=== PATIENT | female | born 1950 | race Caucasian/White ===

== ENCOUNTER 2020-04-26 19:25 | Inpatient (IN) | payer MEDICARE, OTHER ==
[~2020-04-26] VITALS: Ht 165.1 cm; Wt 72.3 kg
[2020-04-26] MEDS ORDERED: NITROGLYCERIN 50MG/250ML 0 ML IV ONE (19:35)
[2020-04-26] MEDS ORDERED: HEPARIN DRIP/D5W 100UNITS/ML 0 ML IV ONE (19:35)
[2020-04-26] MEDS ORDERED: HEPARIN SODIUM (PORCINE) 5000 UNITS/ML 1ML VIAL ONE (19:35)
[2020-04-26] MEDS ORDERED: MORPHINE SULFATE 4 MG/ML SYR/VIAL IV ONE (19:45)
[2020-04-26] MEDS ORDERED: ONDANSETRON HCL 4 MG/2 ML VIAL IV ONE ×2 (19:45→20:30)
[2020-04-26] MEDS ORDERED: ENOXAPARIN SOD 100 MG/1 ML SYRINGE SC ONE (19:45)
[2020-04-26] MEDS ORDERED: ASPirin 325 MG TAB PO ONE (19:45)
[2020-04-26] MEDS ORDERED: ENOXAPARIN SOD 30 MG/0.3 ML SYRINGE IV ONE (19:45)
[2020-04-26] MEDS ORDERED: DOPamine 1600MCG/ML D5W 250 ML IV ONE (20:00)
[2020-04-26] MEDS ORDERED: IOHEXOL 350 MG/ML 100ML IJ ONE (20:01)
[2020-04-26] MEDS ORDERED: IODIXANOL 320MG/ML 100ML BTL IV ONE ×2 (20:01→20:10)
[2020-04-26] MEDS ORDERED: LIDOCAINE 2%HCL (LOCAL ANESTH.) INJ 20ML MDV ONE (20:01)
[2020-04-26 20:03] LABS: Basophils # (auto) 0.1 10 ^3/uL (0-0.2); Basophils % (auto) 1.2 % (0.0-2.0); Eosinophils # (auto) 0.2 10 ^3/uL (0-0.8); Eosinophils % (auto) 1.5 % (0.0-7.0); Hemoglobin 12.7 g/dL (12.2-16.2); Lymphocytes # (auto) 3.4 10 ^3/uL (0.4-5.4); Mean Corpuscular Hemoglobin 28.7 pg (28.0-32.0); Mean Corpuscular Hgb Conc. 32.5 g/dL (32.0-36.0); Mean Corpuscular Volume 88.3 fL (80.0-100.0); Monocytes # (auto) 0.6 10 ^3/uL (0-1.3); Monocytes % (auto) 6.1 % (0.0-12.0); Neutrophils # (auto) 6.2 10 ^3/uL (1.6-8.6); Neutrophils % (auto) 59.2 % (37.0-80.0); Nucleated Red Blood Cells % 0.1 %; Platelet Count (auto) 244 10^3/uL (140-450); Red Blood Cells 4.41 10^6/uL (4.0-5.20); Red Cell Distribution Width 13.2 % (11.8-14.3); White Blood Cell 10.5 10^3/uL (4.4-10.8)
[2020-04-26] MEDS ORDERED: ANGIOMAX 250 MG VIAL IV ONE (20:09)
[2020-04-26] MEDS ORDERED: niCARdipine 25 MG/10 ML VIAL IV ONE (20:09)
[2020-04-26] MEDS ORDERED: fentaNYL CITRATE 100 MCG/2 ML VL ONE (20:10)
[2020-04-26] MEDS ORDERED: MIDAZOLAM HCL 1MG/1ML-2 ML VIAL ONE (20:10)
[2020-04-26] MEDS ORDERED: SODIUM CHL 0.9% 50 ML ONE (20:10)
[2020-04-26 20:19] LABS: INR 1.03 (0.9-1.15); Partial Thromboplastin Time 22.2 sec (23.0-31.2)
[2020-04-26] MEDS ORDERED: ONDANSETRON HCL 4 MG/2 ML VIAL ONE (20:19)
[2020-04-26 20:28] LABS: Albumin 2.8 g/dL (3.4-5.0); Calcium 7.7 mg/dL (8.5-10.1); Magnesium 2.4 mg/dL (1.6-2.6); Potassium 3.6 mmol/L (3.5-5.1)
[2020-04-26] MEDS ORDERED: ADENOSINE 6 MG/2 ML INJ IV ONE (20:30)
[2020-04-26 20:35] LABS: BUN/Creatinine Ratio 14.6; Bilirubin, Total 0.3 mg/dL (0.2-1.0); Total Protein 5.6 g/dL (6.4-8.2)
[2020-04-26] MEDS ORDERED: EPTIFIBATIDE INJ (2MG/ML) 10ML VIAL IV ONE (20:35)
[2020-04-26] MEDS ORDERED: ATROPINE SULF 1 MG/10ml SYR ONE ×2 (20:39→20:41)
[2020-04-26] MEDS ORDERED: TICAGRELOR 90 MG TAB ONE (20:59)
[2020-04-26] MEDS ORDERED: ONDANSETRON HCL 4 MG/2 ML VIAL IV PRN (21:30)
[2020-04-26] MEDS ORDERED: DEXTROSE (50%) 50ML SYRG IV PRN (21:30)
[2020-04-26] MEDS: SOD CHL 0.45% 1,000 ML IV SCH (21:30)
[2020-04-26] MEDS ORDERED: HYDROcodone-ACET 5/325MG TAB PO PRN (21:30)
[2020-04-26] MEDS ORDERED: HYDROmorphone HCL 2 MG/ML VL IV PRN (21:30)
[2020-04-26] MEDS: METOPROLOL TARTRATE 25 MG TAB PO SCH (22:00)
[2020-04-26] MEDS: ACCU-CHEK COMFORT CURVE STRIP VI SCH (22:00)
[2020-04-26] MEDS: SODIUM CHLOR 0.9% PF (SALINE LOCK) 10ML VIAL/SYR IV SCH ×2 (22:00)
[2020-04-26] MEDS ORDERED: InsuLIN REG 1unit/0.01ml Soln (100units/ml) SC SCH (22:00)
[2020-04-26 22:30] VITALS: BP 116/64
[2020-04-26 22:45] VITALS: BP 116/64
[2020-04-26 23:00] VITALS: BP 129/64
[2020-04-27] VITALS (36 sets, daily range): BP systolic 93–193; BP diastolic 50–85
[2020-04-27 00:09] LABS: Magnesium 1.8 mg/dL (1.6-2.6)
[2020-04-27 04:26] LABS: Albumin 2.8 g/dL (3.4-5.0); Calcium 6.9 mg/dL (8.5-10.1); Potassium 4.3 mmol/L (3.5-5.1)
[2020-04-27 04:32] LABS: Basophils # (auto) 0 10 ^3/uL (0-0.2); Basophils % (auto) 0.2 % (0.0-2.0); Eosinophils # (auto) 0 10 ^3/uL (0-0.8); Eosinophils % (auto) 0.1 % (0.0-7.0); Hematocrit 40.7 % (36.0-46.0); Lymphocytes # (auto) 0.6 10 ^3/uL (0.4-5.4); Mean Corpuscular Hemoglobin 28.3 pg (28.0-32.0); Mean Corpuscular Hgb Conc. 31.9 g/dL (32.0-36.0); Mean Corpuscular Volume 88.6 fL (80.0-100.0); Monocytes # (auto) 0.6 10 ^3/uL (0-1.3); Monocytes % (auto) 3.9 % (0.0-12.0); Neutrophils # (auto) 14.4 10 ^3/uL (1.6-8.6); Neutrophils % (auto) 91.8 % (37.0-80.0); Nucleated Red Blood Cells % 0.1 %; Platelet Count (auto) 213 10^3/uL (140-450); Red Blood Cells 4.59 10^6/uL (4.0-5.20); Red Cell Distribution Width 13.2 % (11.8-14.3); White Blood Cell 15.7 10^3/uL (4.4-10.8)
[2020-04-27 04:37] LABS: BUN/Creatinine Ratio 15.6; Bilirubin, Total 0.6 mg/dL (0.2-1.0); Total Protein 5.8 g/dL (6.4-8.2)
[2020-04-27] MEDS: METOPROLOL TARTRATE 25 MG TAB PO SCH ×3 (06:00→20:25)
[2020-04-27] MEDS: SODIUM CHLOR 0.9% PF (SALINE LOCK) 10ML VIAL/SYR IV SCH ×5 (06:00→21:43)
[2020-04-27] MEDS: InsuLIN REG 1unit/0.01ml Soln (100units/ml) SC SCH ×2 (06:54→11:30)
[2020-04-27] MEDS: ACCU-CHEK COMFORT CURVE STRIP VI SCH ×2 (06:55→11:30)
[2020-04-27] MEDS ORDERED: ATORVASTATIN 20 MG TAB PO SCH ×2 (10:00→22:00)
[2020-04-27] MEDS: SOD CHL 0.45% 1,000 ML IV SCH (10:50)
[2020-04-27] MEDS: TICAGRELOR 90 MG TAB PO SCH ×2 (11:41→21:42)
[2020-04-27] MEDS: ASPirin 81 mg TAB PO SCH (11:41)
[2020-04-27] MEDS: PANTOPRAZOLE 40 MG/10 ML VIAL INJ IV SCH (11:42)
[2020-04-27] MEDS: Ensure HIGH Protein Chocolate 8oz Bottle PO SCH ×2 (12:00→19:00)
[2020-04-27] MEDS: LISINOPRIL 20 MG TAB PO SCH (20:26)
[2020-04-27] MEDS ORDERED: FUROSEMIDE 40 MG/4 ML VIAL ONE (20:45)
[2020-04-27] MEDS ORDERED: FUROSEMIDE 40 MG/4 ML VIAL IV ONE (20:45)
[2020-04-28 06:25] LABS: Basophils # (auto) 0 10 ^3/uL (0-0.2); Basophils % (auto) 0.4 % (0.0-2.0); Eosinophils # (auto) 0.1 10 ^3/uL (0-0.8); Eosinophils % (auto) 0.7 % (0.0-7.0); Hematocrit 37.2 % (36.0-46.0); Hemoglobin 12.6 g/dL (12.2-16.2); Lymphocytes # (auto) 1.7 10 ^3/uL (0.4-5.4); Lymphocytes % (auto) 15.2 % (10.0-50.0); Mean Corpuscular Hemoglobin 29.2 pg (28.0-32.0); Mean Corpuscular Hgb Conc. 33.9 g/dL (32.0-36.0); Mean Corpuscular Volume 86.1 fL (80.0-100.0); Monocytes % (auto) 8.9 % (0.0-12.0); Neutrophils # (auto) 8.5 10 ^3/uL (1.6-8.6); Neutrophils % (auto) 74.8 % (37.0-80.0); Platelet Count (auto) 207 10^3/uL (140-450); Red Blood Cells 4.32 10^6/uL (4.0-5.20); Red Cell Distribution Width 12.9 % (11.8-14.3); White Blood Cell 11.4 10^3/uL (4.4-10.8)
[2020-04-28] MEDS: METOPROLOL TARTRATE 25 MG TAB PO SCH (06:27)
[2020-04-28] MEDS: SODIUM CHLOR 0.9% PF (SALINE LOCK) 10ML VIAL/SYR IV SCH (06:27)
[2020-04-28 06:38] LABS: Calcium 8.5 mg/dL (8.5-10.1); Potassium 3.3 mmol/L (3.5-5.1)
[2020-04-28 06:47] LABS: BUN/Creatinine Ratio 16.7
[2020-04-28] MEDS: Ensure HIGH Protein Chocolate 8oz Bottle PO SCH ×2 (08:30→12:30)
[2020-04-28 09:00] VITALS: BP 139/65
[2020-04-28] MEDS ORDERED: POTASSIUM EFFERVESENT TAB 25 MEQ PO ONE (09:00)
[2020-04-28] MEDS: ASPirin 81 mg TAB PO SCH (09:53)
[2020-04-28] MEDS: PANTOPRAZOLE 40 MG/10 ML VIAL INJ IV SCH (09:54)
[2020-04-28] MEDS: LISINOPRIL 20 MG TAB PO SCH (09:55)
[2020-04-28] MEDS ORDERED: ASPirin 81 mg TAB PO SCH (10:00)
[2020-04-28] MEDS: TICAGRELOR 90 MG TAB PO SCH (11:03)
[2020-04-28 12:36] VITALS: BP 139/65
[2020-04-28 12:59] VITALS: BP 151/72
== END 2020-04-28 14:16 | disposition home or self-care (01) | DRG 247 ==
LOC: ER 19:25 → EDBD 19:25 → ICU WEST 19:26 → TELE-CENTR 04-27 22:40
PROVIDERS: ADMIT Hospitalist; ATTEND Internal Medicine
PROC: 027034Z Dilation of Coronary Artery, One Artery with Drug-eluting Intraluminal Device, Percutaneous Approach (ICD-10-PCS; principal; 2020-04-26)
PROC: 02C03ZZ Extirpation of Matter from Coronary Artery, One Artery, Percutaneous Approach (ICD-10-PCS; 2020-04-26)
PROC: 4A023N7 Measurement of Cardiac Sampling and Pressure, Left Heart, Percutaneous Approach (ICD-10-PCS; 2020-04-26)
PROC: B41F1ZZ Fluoroscopy of Right Lower Extremity Arteries using Low Osmolar Contrast (ICD-10-PCS; 2020-04-26)
PROC: B211YZZ Fluoroscopy of Multiple Coronary Arteries using Other Contrast (ICD-10-PCS; 2020-04-26)
PROC: B215YZZ Fluoroscopy of Left Heart using Other Contrast (ICD-10-PCS; 2020-04-26)
PROC: 3E073PZ Introduction of Platelet Inhibitor into Coronary Artery, Percutaneous Approach (ICD-10-PCS; 2020-04-26)
PROC: 04HY32Z Insertion of Monitoring Device into Lower Artery, Percutaneous Approach (ICD-10-PCS; 2020-04-26)
DX: I21.19 ST elevation (STEMI) myocardial infarction involving other coronary artery of inferior wall (principal); I21.29 ST elevation (STEMI) myocardial infarction involving other sites; E78.5 Hyperlipidemia, unspecified; I25.10 Atherosclerotic heart disease of native coronary artery without angina pectoris; R73.9 Hyperglycemia, unspecified; N18.9 Chronic kidney disease, unspecified; Z95.5 Presence of coronary angioplasty implant and graft; Z88.0 Allergy status to penicillin; Z88.8 Allergy status to other drugs, medicaments and biological substances; Z79.899 Other long term (current) drug therapy; Z68.26 Body mass index [BMI] 26.0-26.9, adult; I12.9 Hypertensive chronic kidney disease with stage 1 through stage 4 chronic kidney disease, or unspecified chronic kidney disease
CPT/HCPCS: 36415; 71045; 80048; 80053; 80061; 82962; 83036; 83735; 83880; 84443; 84484; 85025; 85610; 85730; 87081; 92928; 92973; 93005; 93306; 93458; 99152; 99153; C1874; C1887; C9113; G0378; J0153; J1815; J2250; J2405; Q9967